=== PATIENT | male | born 1950 | race Caucasian/White ===

== ENCOUNTER → 2016-12-09 | Outpatient (CLI) | payer MEDICARE, BC ==
--- NOTE | 2016-12-09 13:55 | XR ---
EXAMINATION TYPE: XR chest 2V DATE OF EXAM: 12/09/2016 HISTORY: R05 Cough. REFERENCE: Previous study dated 06/27/2014. FINDINGS: There is increased opacity at the right lung base. Lungs otherwise clear. Pleural spaces ap pear clear. The heart is not enlarged. IMPRESSION: I CANNOT EXCLUDE AN EARLY INFILTRATE IN THE LATERAL ASPECT OF THE RIGHT MIDDLE LOBE.
== END | disposition home or self-care (01) ==
LOC: RADXRMAIN 13:10
PROVIDERS: ATTEND Internal Medicine
DX: R05 Cough (principal)
CPT/HCPCS: 71020

== ENCOUNTER → 2017-05-11 | Outpatient (CLI) | payer MEDICARE, BC ==
--- NOTE | 2017-05-11 16:32 | XR ---
EXAMINATION TYPE: XR chest 2V DATE OF EXAM: 05/11/2017 COMPARISON: 12/09/2016 INDICATION: Cough TECHNIQUE: Frontal and lateral views of the chest are obtained. FINDINGS: The heart size is normal. The pulmonary vasculature is normal. There is hyperinflation flattening the diaphragms compatible COPD. Some chronic lung changes are at t he right costophrenic angle. IMPRESSION: 1. COPD.
== END | disposition home or self-care (01) ==
LOC: RADXRMAIN 14:40
PROVIDERS: ATTEND Nurse Practitioner
DX: R05 Cough (principal)
CPT/HCPCS: 71046

== ENCOUNTER → 2018-08-30 | Outpatient (CLI) | payer MEDICARE, BC ==
--- NOTE | 2018-08-30 16:34 | CT ---
EXAMINATION TYPE: CT sinus wo con DATE OF EXAM: 08/30/2018 COMPARISON: 09/24/2015 HISTORY: Chronic sinusitis. Cough, tobacco use CT DLP: 583 mGycm CONTRAST: 0 mL of Isovue 300 The paranasal sinuses are examined in the axial plane at 2 mm thick sections. Reconstructed images i n the coronal plane were obtained. The maxillary sinuses are clear. The ethmoid air cells are clear. The sphenoid sinuses are clear. The frontal sinuses are clear. The septum is evaluated. There is septal deviation to the left. The ostiomeatal units are patent. IMPRESSIONS: 1. Normal paranasal sinuses.
--- NOTE | 2018-08-30 16:46 | CTL ---
EXAMINATION TYPE: CT Low Dose Lung DATE OF EXAM ORDERED: 08/30/2018 HISTORY: Initial. Lung cancer screening CT DLP: [address] CTDI: 1.91 mGy Automated exposure control for dose reduction was used. SCREENING VISIT: Initial COMPARISON: 08/10/2015 TECHNIQUE: Low dose computed tomography scan was performed through the chest at 1 mm thick sections a nd reconstructed images in the coronal plane at [address] DIAGNOSTIC QUALITY: Limited, but interpretable FINDINGS: LUNG NODULES: Present, detailed below: 1 There is a 0.4 cm peripheral based nodule in the posterior left upper lobe. Series 5 image 69. 2. There is a 0.2 cm right middle lobe peripheral nodule. Series 5 image 137. LUNGS: COPD: Severity: Mild Fibrosis: Severity: None Lymph nodes: None Other findings: None RIGHT PLEURAL SPACE: Effusion: None Calcification: None Thickening: None Pneumothorax: None LEFT PLEURAL SPACE: Effusion: None Calcification: None Thickening: Minimal along the lateral left lung base adjacent to the major fissure, example image ser ies 3 image 41 Pneumothorax: None HEART: Heart Size: Normal Coronary calcification: Minimal Pericardial effusion: None OTHER FINDINGS: Upper abdomen: Normal Bony thorax: Normal Supraclavicular region: Normal Other: Ascending thoracic aorta at the level the main pulmonary artery is 3.5 cm. The main pulmonary artery at the bifurcation is 2.2 cm. IMPRESSION: Probably benign findings FOLLOW UP CT CHEST RECOMMENDATION: Follow-up CT chest in [address] LUNG RAD: Lung-Rad 3 Probably Benign
== END | disposition home or self-care (01) ==
LOC: RADCTMAIN 15:44
PROVIDERS: ATTEND Otolaryngology
DX: Z12.2 Encounter for screening for malignant neoplasm of respiratory organs (principal); J32.9 Chronic sinusitis, unspecified; Z87.891 Personal history of nicotine dependence
CPT/HCPCS: 70486; G0297

== ENCOUNTER → 2018-09-07 | Outpatient (CLI) | payer MEDICARE, BC ==
--- NOTE | 2018-09-07 15:34 | US ---
EXAMINATION TYPE: US kidneys/renal and bladder DATE OF EXAM: 09/07/2018 COMPARISON: NONE CLINICAL HISTORY: R31.29 Other microscopic hematuria. No prominent pain, chronic back pain with pain port. EXAM MEASUREMENTS: Right Kidney: 10.2 x 5.4 x 4.6 cm Left Kidney: 9.7 x 5.1 x 4.8 cm Right Kidney: No hydronephrosis or masses seen Left Kidney: No hydronephrosis or masses seen Bladder: wnl, wall irregularity is seen diffusely. Left jet seen There is no evidence for hydronephrosis at this point in time. No nephrolithiasis is seen. No osito s are identified. The urinary bladder is anechoic. IMPRESSION: No hydronephrosis or nephrolithiasis. No focal renal mass is seen. Diffuse wall irregularity of the u rinary bladder could relate to incomplete distention, cystitis or other etiology. CT cystogram could be considered if there is further clinical concern.
== END | disposition home or self-care (01) ==
LOC: RADUSWWP 14:46
PROVIDERS: ATTEND Internal Medicine
DX: N32.9 Bladder disorder, unspecified (principal); R31.29 Other microscopic hematuria
CPT/HCPCS: 76770

== ENCOUNTER → 2018-09-22 | Outpatient (CLI) | payer MEDICARE, BC ==
[2018-09-22 16:58] LABS: African American GFR (CKD) >90 (>60 ml/min/1.73 sqM); Blood Urea Nitrogen 12 mg/dL (9-20)
--- NOTE | 2018-09-22 22:32 | CT ---
EXAMINATION TYPE: CT urogram wo/w con DATE OF EXAM: 09/22/2018 COMPARISON: Renal ultrasound September 07, 2018. HISTORY: hematuria X [address] DLP: 3111 mGycm, Automated Exposure Control for Dose Reduction was Utilized. CONTRAST: CT scan of the abdomen and pelvis is performed without oral and without and with IV Contrast, patient injected with 100 mL of Isovue 300. Urogram protocol with 3-D reconstructed images created on an [employer] workstation and reviewed. FINDINGS: KUB: Noncontrast images show no renal calculi bilaterally. Postcontrast images show symmetric cortica l medullary uptake and excretion from both kidneys without evidence of concerning solid or cystic yared al mass or hydronephrosis seen bilaterally. Urinary bladder shows improved distention on CT without i ntraluminal mass or suspicious wall thickening. Visualized portion of both ureters show no suspicious dilatation or obstructing mass. LUNG BASES: There is patchy bilateral lateral aspects linear scarring. LIVER/GB: No significant abnormality is appreciated. PANCREAS: No significant abnormality is seen. SPLEEN: No significant abnormality is seen. ADRENALS: No significant abnormality is seen. KIDNEYS: No significant abnormality is seen. BOWEL: No significant abnormality is seen. PROSTATE/SEMINAL VESICLES: Prostate gland is upper limits of normal in size. LYMPH NODES: No greater than 1cm abdominal or pelvic lymph nodes are appreciated. OSSEOUS STRUCTURES: Slight dextroconvex scoliotic curvature. Moderate to severe multilevel spurring a nd disc space narrowing throughout the visualized thoracolumbar spine. Large spur effaces the anterio r thecal sac at L1-L2 level with multiple additional posterior spurs effacing the anterior thecal sac throughout the lumbar spine. There is multilevel facet arthropathy. OTHER: Stimulator device in the left upper gluteal tissue is noted ascending in the thoracic spinal c anal. IMPRESSION: No significant finding is seen to account for patient's clinical symptoms of hematuria.
== END | disposition home or self-care (01) ==
LOC: RADCTMAIN 16:09
PROVIDERS: ATTEND Internal Medicine
DX: R31.9 Hematuria, unspecified (principal)
CPT/HCPCS: 82565; 84520; 74178; 36415; 74400; Q9967

== ENCOUNTER → 2020-05-10 | Outpatient (CLI) | payer MEDICARE, BC ==
[~2020-05-10] MED LIST: REGADENOSON 0.4 MG/5 ML SYRINGE IV PRN
--- NOTE | 2020-05-10 09:58 | US ---
EXAMINATION TYPE: US carotid duplex BILAT DATE OF EXAM: 05/10/2020 COMPARISON: NONE CLINICAL HISTORY: 70-year-old male I25.119 Atherosclerotic heart disease of [place]. TECHNIQUE: Carotid duplex ultrasound examination. Indirect Doppler criteria was utilized. FINDINGS: EXAM MEASUREMENTS: RIGHT: Peak Systolic Velocity (PSV) cm/sec ----- Right CCA: 100.5 ----- Right ICA: 134.0 ----- Right ECA: 141.5 ICA/CCA ratio: 1.3 RIGHT: End Diastole cm/sec ----- Right CCA: 27.3 ----- Right ICA: 45.0 ----- Right ECA: 24.2 LEFT: Peak Systolic Velocity (PSV) cm/sec ----- Left CCA: 121.3 ----- Left ICA: 105.8 ----- Left ECA: 89.7 ICA/CCA ratio: 0.9 LEFT: End Diastole cm/sec ----- Left CCA: 35.0 ----- Left ICA: 44.5 ----- Left ECA: 11.1 VERTEBRALS (direction of flow): Right Vertebral: Antegrade Left Vertebral: Antegrade Rhythm: Normal Deck Scaler notes: Minimal atherosclerotic changes with no significant velocity increases. IMPRESSION: 1. Mildly elevated velocities right ICA suspected to be from turbulent flow (rather than a moderate 5 0-69% stenosis) as no appreciable narrowing is demonstrated on grayscale images. 2. No definite hemodynamically significant ICA stenosis on either side. Criteria for Assigning % of Stenosis / Diameter reduction (Estimation based on the indirect measurements of the internal carotid artery velocities (ICA PSV). 1. Normal (no stenosis)=ICA PSV < 125 cm/s: ratio < 2.0: ICA EDV<40 cm/s. 2. Less than 50% stenosis=ICA PSV < 125 cm/s: ratio < 2.0: ICA EDV<40 cm/s. 3. 50 to 69% stenosis=ICA PSV of 125 to 230 cm/s: ration 2.0 ? 4.0: ICA EDV 40-100 cm/s. 4. Greater than 70% stenosis to near occlusion= ICA PSV > 230 cm/s: ratio > 4.0: ICA EDV > 100 cm/s. 5. Near occlusion= ICA PSV velocities may be low or undetectable: variable ratio and ICA EDV. 6. Total occlusion=unable to detect flow.
--- NOTE | 2020-05-10 12:58 | NM ---
EXAMINATION TYPE: NM stress lexiscan cardiolite DATE OF EXAM: 05/10/2020 COMPARISON: NONE HISTORY: 70-year-old male I25.119 TECHNIQUE: After the intravenous administration of 10.2 mCi Tc 99m Sestamibi - Cardiolite resting SP ECT images acquired 50 minutes post injection. The patient received 0.4mg Lexiscan, 25.7 mCi Tc 99m Sestamibi - Stress images obtained [address] injection FINDINGS: Review of stress and rest SPECT images demonstrates fixed perfusion abnormality along the inferior, i nferolateral and apical wall and inferior, inferoseptal mid to basal wall. No discrete reversibility is identified. However, TID is elevated at 1.27. No distinct perfusion abnormality. Gated analysis s uggests some possible hypokinesis of the inferior wall. Estimated left ventricular ejection fraction of 66 %. IMPRESSION: Unable to exclude previous inferior wall infarct versus extensive diaphragmatic attenuation. In addit ion, TID is increased at 1.27. This can be seen in the setting of multivessel global inducible ischem ia. Further clinical correlation/workup recommended.
--- NOTE | 2020-05-10 13:00 | ECHOF ---
Referral Reason:I25.119 Atherosclerotic heart disease of [place]... MEASUREMENTS -------- HEIGHT: 180.3 cm WEIGHT: 104.3 kg BP: RVIDd: 2.8 cm (< 3.3) IVSd: 1.0 cm (0.6 - 1.1) LVIDd: 4.6 cm (3.9 - 5.3) LVPWd: 1.2 cm (0.6 - 1.1) IVSs: 1.9 cm LVIDs: 1.8 cm LVPWs: 2.1 cm LAESV Index (A-L): 26.60 ml/m Ao Diam: 3.0 cm (2.0 - 3.7) AV Cusp: 2.4 cm (1.5 - 2.6) LA Diam: 3.2 cm (2.7 - 3.8) MV EXCURSION: 14.013 mm (> 18.000) MV EF SLOPE: 135 mm/s (70 - 150) EPSS: 0.8 cm MV E Robert: 0.65 m/s MV DecT: 235 ms MV A Robert: 0.93 m/s MV E/A Ratio: 0.69 RAP: 5.00 mmHg RVSP: 23.28 mmHg FINDINGS -------- Sinus rhythm. This was a technically adequate study. The left ventricular size is normal. Left ventricular wall thickness is normal. Overall left vent ricular systolic function is normal with, an EF between 55 - 60 %. The diastolic filling pattern is normal for the age of the patient 7.91. The right ventricle is normal in size. Normal LA size by volume 22+/-6 ml/m2. The right atrial size is normal. Interatrial and interventricular septum intact. The aortic valve is trileaflet, and appears structurally normal. No aortic stenosis or regurgitation. The mitral valve is normal. Mild mitral regurgitation is present. The tricuspid valve appears structurally normal. Mild tricuspid regurgitation present. Right vent ricular systolic pressure is normal at < 35 mmHg. There is no pulmonic regurgitation present. The aortic root size is normal. Normal inferior vena cava with normal inspiratory collapse consistent with estimated right atrial pre ssure of 5 mmHg. There is no pericardial effusion. CONCLUSIONS -------- 1. Left ventricular wall thickness is normal. 2. Overall left ventricular systolic function is normal with, an EF between 55 - 60 %. 3. Normal LA size by volume 22+/-6 ml/m2. 4. The aortic valve is trileaflet, and appears structurally normal. No aortic stenosis or regurgitati on. 5. Mild mitral regurgitation is present. 6. Mild tricuspid regurgitation present. 7. There is no pericardial effusion. STONE LAYER: Valarie Menchaca RDCS
--- NOTE | 2020-05-10 14:18 | EST ---
EXERCISE STRESS AGE: 70 SEX: Male HT: 5'11" WT: 235 lbs. PROTOCOL: Lexiscan Cardiolite STAGE: N/A DURATION OF EXERCISE: N/A HEART RATE REST: 66 BLOOD PRESSURE REST: 126/70 MAXIMUM HEART RATE ACHIEVED: 80 MAXIMUM BLOOD PRESSURE: 126/70 85% MPHR: 128 100% MPHR: 151 METS: N/A INDICATIONS: Atherosclerotic heart disease CLINICAL INFORMATION: Baseline rhythm is sinus mechanism, rate 66, normal axis and intervals, normal electrocardiogram. Baseline blood pressure 126/70 mmHg. Patient received injection of Lexiscan. Electrocardiograph monitoring revealed no evidence of diagnostic ischemic ST deviation. Cardiolite was injected per protocol. CONCLUSION: 1. Nondiagnostic electrocardiograph stress testing. 2. Nuclear images will be reported separately. MMODL / IJN: [id number] /
== END | disposition home or self-care (01) ==
LOC: RADUSWWP 07:07
PROVIDERS: ATTEND Internal Medicine
DX: I08.1 Rheumatic disorders of both mitral and tricuspid valves (principal); I65.23 Occlusion and stenosis of bilateral carotid arteries; I25.119 Atherosclerotic heart disease of native coronary artery with unspecified angina pectoris; I73.9 Peripheral vascular disease, unspecified; R60.0 Localized edema
CPT/HCPCS: 93017; 93306; 93922; 93880; 78452; A9500; J2785

== ENCOUNTER → 2020-06-06 | Outpatient (CLI) | payer MEDICARE, BC ==
--- NOTE | 2020-06-06 13:52 | CT ---
EXAMINATION TYPE: CT angio neck DATE OF EXAM: 06/06/2020 HISTORY: Carotid stenosis COMPARISON: Ultrasound 05/10/2020 CT DLP: 398.21 mGycm. Automated Exposure Control for Dose Reduction was Utilized. TECHNIQUE: CTA scan of the neck is performed , patient injected with 65 mL of Isovue 370, axial imag es are obtained, coronal and sagittal reformatted images are reviewed. Three-D reconstructed images a re created on an independent workstation and reviewed. FINDINGS: Hypertrophic and degenerative changes spine with multilevel foraminal encroachment and bert l stenosis. Carotid bifurcations are widely patent bilaterally with no significant stenosis. Mild atherosclerotic change of the aortic arch. Standard three-vessel arch anatomy. Visualized subclavian arteries patent . Vertebral artery symmetric. Intracranial and soft tissue structures of the neck are symmetric. Lung paraseptal emphysema noted at the lung apices. Chronic rib deformity seen posteriorly in the upper rib cage on the right suggestiv e of remote trauma. 2 mm nodule right upper lobe anterior segment.. Measures 4 mm. Thyroid homogeneou s. IMPRESSION: 1. Carotid bifurcations are widely patent with no significant hemodynamic stenosis. 2. 2 mm anterior segment right upper lobe pulmonary nodule too small to characterize. 12 month follow -up CT scan could be obtained to confirm stability.
== END | disposition home or self-care (01) ==
LOC: RADCTMAIN 11:29
PROVIDERS: ATTEND Internal Medicine
DX: I65.29 Occlusion and stenosis of unspecified carotid artery (principal)
CPT/HCPCS: 82565; 84520; 70498; 36415; Q9967

== ENCOUNTER → 2020-06-21 | Outpatient (CLI) | payer MEDICARE, BC ==
[2020-06-22 04:01] LABS: African American GFR (CKD) 88.6 (60.0-200.0); Non-African American GFR(CKD) 76.5 (60.0-200.0)
== END | disposition home or self-care (01) ==
LOC: LABWHC1 12:45
PROVIDERS: ATTEND Internal Medicine Cardiovascular Disease
DX: Z01.812 Encounter for preprocedural laboratory examination (principal)
CPT/HCPCS: 36415; 82565; 84520

== ENCOUNTER → 2020-07-11 | Outpatient (CLI) | payer MEDICARE, BC ==
--- NOTE | 2020-07-12 07:38 | CTL ---
EXAMINATION TYPE: CT Low Dose Lung DATE OF EXAM ORDERED: 07/11/2020 HISTORY: Personal history tobacco use. Lung cancer screening CT DLP: [address] CTDI: 2.68 mGy Automated exposure control for dose reduction was used. SCREENING VISIT: Subsequent follow-up COMPARISON: 08/30/2018 TECHNIQUE: Low dose computed tomography scan was performed through the chest at 1 mm thick sections a nd reconstructed images in the coronal plane at [address] DIAGNOSTIC QUALITY: Satisfactory FINDINGS: LUNG NODULES: None. LUNGS: COPD: Severity: None Fibrosis: Severity: None Lymph nodes: No enlarged lymphadenopathy Other findings: None RIGHT PLEURAL SPACE: Effusion: None Calcification: None Thickening: None Pneumothorax: None LEFT PLEURAL SPACE: Effusion: None Calcification: None Thickening: There is a small area of pleural thickening along the lateral left lower lung field, exam ple image series 5 image 211. Pneumothorax: None HEART: Heart Size: Normal Coronary calcification: Mild Pericardial effusion: None OTHER FINDINGS: Upper abdomen: Normal Bony thorax: Normal Supraclavicular region: Normal Other: Ascending thoracic aorta at the main pulmonary artery is 3.6 cm. Main pulmonary artery the bif urcation is 2.6 cm. IMPRESSION: No suspicious changes to suggest neoplasm CT LUNG RAD AND CT CHEST RECOMMENDATION: Lung-Rad 2 Benign Appearance or Behavior: Continue annual sc reening with LDCT in 12 months. S Modifier (other clinically significant findings): None
== END | disposition home or self-care (01) ==
LOC: RADCTMAIN 16:51
PROVIDERS: ATTEND Internal Medicine Pulmonary Disease
DX: Z12.2 Encounter for screening for malignant neoplasm of respiratory organs (principal); Z87.891 Personal history of nicotine dependence
CPT/HCPCS: 71271

== ENCOUNTER 2020-10-28 20:37 | Emergency (ER) | payer MEDICARE, BC ==
[2020-10-28 20:54] VITALS: TEMP 98.3
[2020-10-28] MEDS ORDERED: IBUPROFEN 600 MG TAB PO STA (21:30)
[2020-10-28 22:08] LABS: Basophils % (A) 1 %; Eosinophils # (A) 0.1 k/uL (0-0.7); Eosinophils % (A) 1 %; HCT 37.1 % (39.0-53.0); HGB 12.7 gm/dL (13.0-17.5); Lymphocytes # (A) 1.3 k/uL (1.0-4.8); Lymphocytes % (A) 13 %; MCH 29.5 pg (25.0-35.0); MCHC 34.3 g/dL (31.0-37.0); MCV 85.9 fL (80.0-100.0); Mean Platelet Volume 7.7; Monocytes # (A) 0.6 k/uL (0-1.0); Monocytes % (A) 6 %; Neutrophils # (A) 7.3 k/uL (1.3-7.7); Neutrophils % (A) 78 %; Platelet Count 192 k/uL (150-450); RBC 4.32 m/uL (4.30-5.90); RDW 13.2 % (11.5-15.5); WBC 9.3 k/uL (3.8-10.6)
[2020-10-28] MEDS: SODIUM CHLORIDE 0.9% 500 ML 500 ML IV SCH (22:10)
--- NOTE | 2020-10-28 22:15 | XR ---
EXAMINATION TYPE: XR chest 2V DATE OF EXAM: 10/28/2020 COMPARISON: 05/11/2017 HISTORY: Cough TECHNIQUE: 2 views FINDINGS: There is no heart failure nor confluent pneumonic infiltrate. Costophrenic angles are clear . Thoracic aorta shows atheromatous changes. There is no pleural effusion. There is some spurring in the thoracic spine. IMPRESSION: No active cardiopulmonary disease. Normal heart. No change.
[2020-10-28 22:19] LABS: Partial Thromboplastin Time 25.1 sec (22.0-30.0); Prothrombin Time 10.3 sec (9.0-12.0)
[2020-10-28 22:38] LABS: ALT 14 U/L (4-49); AST 22 U/L (17-59); African American GFR (CKD) >90 (>60 ml/min/1.73 sqM); Alkaline Phosphatase 150 U/L (38-126); Anion Gap 9 mmol/L; Blood Urea Nitrogen 13 mg/dL (9-20); Calcium 9.1 mg/dL (8.4-10.2); Carbon Dioxide 23 mmol/L (22-30); Chloride 105 mmol/L (98-107); Glucose 107 mg/dL (74-99); Non-African American GFR(CKD) 87 (>60 ml/min/1.73 sqM); Potassium 4.1 mmol/L (3.5-5.1); Sodium 137 mmol/L (137-145); Total Bilirubin 0.6 mg/dL (0.2-1.3)
[2020-10-28 22:42] LABS: Appearance,Urine Clear (Clear); Bilirubin,Urine Negative (Negative); Blood,Urine Negative (Negative); Color,Urine Light Yellow; Glucose,Urine (UA) Negative (Negative); Ketones,Urine Negative (Negative); Leukocyte Esterase,Urine Negative (Negative); Nitrite,Urine Negative (Negative); Protein,Urine Negative (Negative); Specific Gravity,Urine 1.006 (1.001-1.035); Urobilinogen,Urine <2.0 mg/dL (<2.0)
--- NOTE | 2020-10-28 23:32 | ED ---
General Adult HPI - General Chief complaint: Upper Respiratory Infection Stated complaint: fever,muscle aches Time Seen by Provider: 10/28/20 21:01 Source: patient Mode of arrival: ambulatory Limitations: no limitations - History of Present Illness Initial comments: 70-year-old male patient presents to the emergency department today for evaluation of fever. Patient states he has been taking Augmentin for sinus infection since last Thursday. Patient states that he has frequent sinus infections and has a standing order for antibiotics from his primary care physician. Patient states last week he started experiencing a bad smell which usually indicates is getting an infection. Patient denies any nasal congestion or drainage. States he has had a cough for the last few days. Denies any sputum production. Denies any chest pain or shortness of breath. Denies headache, blurred vision, double vision. Denies nausea or vomiting. States he has had diarrhea for the last 2 days after starting the antibiotic. We also reports body aches and muscle aches. Patient denies any recent rash, abdominal pain, constipation, back pain, numbness, tingling, dizziness, weakness, hematuria, dysuria, urinary urgency, urinary frequency, headache, visual leana nges, or any other complaints. - Related Data Home Medications Medication Instructions Recorded Confirmed Aspirin [Adult Low Dose Aspirin EC] 81 mg PO DAILY 10/22/16 11/20/16 HYDROmorphone [Dilaudid] 1 mg PO Q4HR PRN 10/22/16 11/20/16 Lisinopril-Hctz 10-12.5 mg 0.9 tab PO DAILY 10/22/16 11/20/16 [Zestoretic 10-12.5] Meloxicam 15 mg PO DAILY 10/22/16 11/20/16 PARoxetine HCL [Paxil] 40 mg PO DAILY 10/22/16 11/20/16 HYDROcodone/APAP 7.5-325MG [[place] 1 tab PO Q6HR PRN 10/24/16 11/20/16 7.5-325] Allergies Allergy/AdvReac Type Severity Reaction Status Date / Time No Known Allergies Allergy Verified 10/28/20 20:54 Review of Systems ROS Statement: Those systems with pertinent positive or pertinent negative responses have been documented in the HPI. ROS Other: All systems not noted in ROS Statement are negative. Past Medical History Additional Past Medical History / Comment(s): pain pump in back History of Any Multi-Drug Resistant Organisms: None Reported Additional Past Surgical History / Comment(s): prerna carpal tunnel surg, pain pump implant, rinoplasty surgery Past Anesthesia/Blood Transfusion Reactions: No Reported Reaction Past Psychological History: No Psychological Hx Reported Smoking Status: Current every day smoker Past Alcohol Use History: None Reported Past Drug Use History: None Reported General Exam Limitations: no limitations General appearance: alert, in no apparent distress, other (This is a well- developed, well-nourished adult male patient in no acute distress. Vital signs upon presentation are temperature 98.3F, pulse 70, respirations 18, blood pressure 132/68, pulse ox 99% on room air.) Eye exam: Present: normal appearance, PERRL, EOMI. Absent: scleral icterus, conjunctival injection, periorbital swelling ENT exam: Present: normal exam, normal oropharynx, mucous membranes moist, TM's normal bilaterally, other (No frontal or maxillary sinus tenderness) Neck exam: Present: normal inspection, full ROM. Absent: tenderness, meningismus, lymphadenopathy Respiratory exam: Present: normal lung sounds bilaterally. Absent: respiratory distress, wheezes, rales, rhonchi, stridor Cardiovascular Exam: Present: regular rate, normal rhythm, normal heart sounds. Absent: systolic murmur, diastolic murmur, rubs, gallop, clicks GI/Abdominal exam: Present: soft, normal bowel sounds. Absent: distended, tenderness, guarding, rebound, rigid Neurological exam: Present: alert, oriented X3, CN II-XII intact Psychiatric exam: Present: normal affect, normal mood Skin exam: Present: warm, dry, intact, normal color. Absent: rash Course Vital Signs 10/28/20 10/28/20 10/28/20 20:51 21:54 22:26 Temperature 98.3 F Pulse Rate 70 Respiratory 18 18 28 H Rate Blood Pressure 132/68 162/87 O2 Sat by Pulse 99 97 Oximetry 10/28/20 23:48 Temperature Pulse Rate 87 Respiratory 16 Rate Blood Pressure 151/98 O2 Sat by Pulse 97 Oximetry EKG Findings - EKG Comments: EKG Findings:: EKG obtained at 2157 shows sinus bradycardia with a ventricular rate of 59, NJ interval 204, QRS duration 96, QTc 456, QTc 451. No evidence of ST elevation or depression. Medical Decision Making - Medical Decision Making 70-year-old male patient presents to the emergency department today for evaluation of fever. Taking Augmentin for sinus infection. Physical examination is unremarkable. Lungs are clear to auscultation with good air movement. No sinus tenderness. Labs reviewed and revealed normal white blood cell count, negative lactic acid. Vital signs are normal. Chest x-ray negative. I did discuss findings and results with the patient and his . The be discharged to continue the Augmentin. Instructed to follow-up with the primary care physician for recheck in 1-2 days. Return parameters were discussed in detail. Patient verbalizes understanding and agrees with this plan. Case discussed with my attending Dr. Aly. - Lab Data Result diagrams: 10/28/20 21:51 10/28/20 21:51 Lab Results 10/28/20 10/28/20 10/28/20 Range/Units 21:51 21:51 21:51 WBC 9.3 (3.8-10.6) k/uL RBC 4.32 (4.30-5.90) m/uL Hgb 12.7 L (13.0-17.5) gm/dL Hct 37.1 L (39.0-53.0) % MCV 85.9 (80.0-100.0) fL MCH 29.5 (25.0-35.0) pg MCHC 34.3 (31.0-37.0) g/dL RDW 13.2 (11.5-15.5) % Plt Count 192 (150-450) k/uL MPV 7.7 Neutrophils % 78 % Lymphocytes % 13 % Monocytes % 6 % Eosinophils % 1 % Basophils % 1 % Neutrophils # 7.3 (1.3-7.7) k/uL Lymphocytes # 1.3 (1.0-4.8) k/uL Monocytes # 0.6 (0-1.0) k/uL Eosinophils # 0.1 (0-0.7) k/uL Basophils # 0.0 (0-0.2) k/uL PT 10.3 (9.0-12.0) sec INR 1.0 (<1.2) APTT 25.1 (22.0-30.0) sec Sodium (137-145) mmol/L Potassium (3.5-5.1) mmol/L Chloride (98-107) mmol/L Carbon Dioxide (22-30) mmol/L Anion Gap mmol/L BUN (9-20) mg/dL Creatinine (0.66-1.25) mg/dL Est GFR (CKD-EPI)AfAm (>60 ml/min/1.73 sqM) Est GFR (CKD-EPI)NonAf (>60 ml/min/1.73 sqM) Glucose (74-99) mg/dL Plasma Lactic Acid Dereck (0.7-2.0) mmol/L Calcium (8.4-10.2) mg/dL Total Bilirubin (0.2-1.3) mg/dL AST (17-59) U/L ALT (4-49) U/L Alkaline Phosphatase (38-126) U/L Total Protein (6.3-8.2) g/dL Albumin (3.5-5.0) g/dL Urine Color Light Yellow Urine Appearance Clear (Clear) Urine pH 7.0 (5.0-8.0) Ur Specific [place] 1.006 (1.001-1.035) Urine Protein Negative (Negative) Urine Glucose (UA) Negative (Negative) Urine Ketones Negative (Negative) Urine Blood Negative (Negative) Urine Nitrite Negative (Negative) Urine Bilirubin Negative (Negative) Urine Urobilinogen <2.0 (<2.0) mg/dL Ur Leukocyte Esterase Negative (Negative) 10/28/20 10/28/20 Range/Units 21:51 21:51 WBC (3.8-10.6) k/uL RBC (4.30-5.90) m/uL Hgb (13.0-17.5) gm/dL Hct (39.0-53.0) % MCV (80.0-100.0) fL MCH (25.0-35.0) pg MCHC (31.0-37.0) g/dL RDW (11.5-15.5) % Plt Count (150-450) k/uL MPV Neutrophils % % Lymphocytes % % Monocytes % % Eosinophils % % Basophils % % Neutrophils # (1.3-7.7) k/uL Lymphocytes # (1.0-4.8) k/uL Monocytes # (0-1.0) k/uL Eosinophils # (0-0.7) k/uL Basophils # (0-0.2) k/uL PT (9.0-12.0) sec INR (<1.2) APTT (22.0-30.0) sec Sodium 137 (137-145) mmol/L Potassium 4.1 (3.5-5.1) mmol/L Chloride 105 (98-107) mmol/L Carbon Dioxide 23 (22-30) mmol/L Anion Gap 9 mmol/L BUN 13 (9-20) mg/dL Creatinine 0.90 (0.66-1.25) mg/dL Est GFR (CKD-EPI)AfAm >90 (>60 ml/min/1.73 sqM) Est GFR (CKD-EPI)NonAf 87 (>60 ml/min/1.73 sqM) Glucose 107 H (74-99) mg/dL Plasma Lactic Acid Dereck 0.9 (0.7-2.0) mmol/L Calcium 9.1 (8.4-10.2) mg/dL Total Bilirubin 0.6 (0.2-1.3) mg/dL AST 22 (17-59) U/L ALT 14 (4-49) U/L Alkaline Phosphatase 150 H (38-126) U/L Total Protein 7.0 (6.3-8.2) g/dL Albumin 4.0 (3.5-5.0) g/dL Urine Color Urine Appearance (Clear) Urine pH (5.0-8.0) Ur Specific [place] (1.001-1.035) Urine Protein (Negative) Urine Glucose (UA) (Negative) Urine Ketones (Negative) Urine Blood (Negative) Urine Nitrite (Negative) Urine Bilirubin (Negative) Urine Urobilinogen (<2.0) mg/dL Ur Leukocyte Esterase (Negative) - Radiology Data Radiology results: report reviewed, image reviewed Two-view x-ray of the chest is obtained. Report was reviewed in its entirety. Impression by Dr. Chambers shows no active cardiopulmonary disease. Normal heart. No change. Disposition Clinical Impression: Body aches, Fever Disposition: HOME SELF-CARE Condition: Good Instructions (If sedation given, give patient instructions): Fever in Adults (ED) Additional Instructions: Follow-up with your primary care physician for recheck in 1-2 days. Continue your home antibiotic. Return to the emergency department for any new, worsening, or concerning symptoms. Is patient prescribed a controlled substance at d/c from ED?: No Referrals: Vasiliy Larry MD [Primary Care Provider] - 1-2 days Time of Disposition: 23:32
[2020-10-28 23:49] VITALS: BP 151/98; PULSE 87; RESP 16
== END 2020-10-28 23:49 | disposition home or self-care (01) ==
LOC: EC 20:37
DX: R50.9 Fever, unspecified (principal); M79.10 Myalgia, unspecified site; F17.200 Nicotine dependence, unspecified, uncomplicated; Z79.82 Long term (current) use of aspirin
CPT/HCPCS: 36415; 71046; 80053; 81003; 83605; 85025; 85610; 85730; 87040; 93005; 99283

== ENCOUNTER → 2022-03-11 | Outpatient (CLI) | payer MEDICARE, BC ==
--- NOTE | 2022-03-11 10:16 | CT ---
EXAMINATION TYPE: CT sinus wo con DATE OF EXAM: 03/11/2022 COMPARISON: Sinus CT 2019 HISTORY: Chronic sinusitis. CT DLP: 679.3 mGycm. Automated Exposure Control for Dose Reduction was Utilized. TECHNIQUE: CT scan of the sinuses is performed without contrast, axial images are obtained, coronal r eformatted images are also reviewed. FINDINGS: The paranasal sinuses including the frontal, ethmoid, sphenoid, and maxillary sinuses bila terally are well-aerated without abnormal opacification or suspicious air-fluid levels. The ostiomea joshua complex remain patent bilaterally on the coronal images. Visualized portion of mastoid air cells show no abnormal opacification. The globes are intact bilate rally. Visualized brain parenchyma shows age related changes. IMPRESSION: The paranasal sinuses remain clear and the ostiomeatal complex remains patent bilaterally . No significant change from prior.
--- NOTE | 2022-03-11 17:15 | XR ---
EXAMINATION TYPE: XR chest special 4+ views DATE RECEIVED ON: 03/11/2022 DATE PERFORMED: 03/11/2022 COMPARISON: NONE HISTORY: Cough fever sinus infection TECHNIQUE: Frontal and lateral views of the chest are obtained. Additional bilateral oblique views w ere obtained. FINDINGS: The heart size is normal. The pulmonary vasculature is normal. The lungs are clear. No s uspicious infiltrates are evident. No pneumothorax is present. Osseous structures appear intact. Spon dylosis in the thoracic spine. IMPRESSION: 1. No acute cardiopulmonary process.
== END | disposition home or self-care (01) ==
LOC: RADCTMAIN 09:47
PROVIDERS: ATTEND Otolaryngology
DX: J32.9 Chronic sinusitis, unspecified (principal); J32.8 Other chronic sinusitis; R05.9 Cough, unspecified
CPT/HCPCS: 70486; 71048

== ENCOUNTER → 2022-07-14 | Outpatient (CLI) | payer MEDICARE, BC ==
--- NOTE | 2022-07-16 10:09 | CA ---
Transthoracic Echo Report Name: Dima Scales Age: 72 Gender: M : 1950 Exam Date: 07/14/2022 13:29 Exam Location: [place] Ht (in): 69 Wt (lb): 223 Ordering Physician: Vasiliy Larry MD Attending/Referring Phys: Family Service Worker Jacquie Tai RDCS Procedure CPT: Indications: I34.0 nonrheumatic mitral valve regurgitation Cardiac Hx: Technical Quality: Fair Contrast 1: Total Dose (mL): Contrast 2: Total Dose (mL): MEASUREMENTS (Male / Female) Normal Values 2D ECHO LV Diastolic Diameter PLAX 4.6 cm 4.2 - 5.9 / 3.9 - 5.3 cm LV Systolic Diameter PLAX 3.0 cm IVS Diastolic Thickness 1.1 cm 0.6 - 1.0 / 0.6 - 0.9 cm LVPW Diastolic Thickness 1.2 cm 0.6 - 1.0 / 0.6 - 0.9 cm LV Relative Wall Thickness 0.5 RV Internal Dim ED PLAX 4.4 cm LA Volume 63.5 cm??? 18 - 58 / 22 - 52 cm??? M-MODE Aortic Root Diameter MM 2.7 cm LA Systolic Diameter MM 4.7 cm LA Ao Ratio MM 1.7 AV Cusp Separation MM 2.0 cm DOPPLER AV Peak Velocity 148.5 cm/s AV Peak Gradient 8.8 mmHg AV Mean Velocity 97.3 cm/s AV Mean Gradient 4.3 mmHg AV Velocity Time Integral 33.3 cm LVOT Peak Velocity 116.0 cm/s LVOT Peak Gradient 5.4 mmHg LVOT Velocity Time Integral 26.2 cm MV Area PHT 3.2 cm??? Mitral E Point Velocity 90.5 cm/s Mitral A Point Velocity 103.0 cm/s Mitral E to A Ratio 0.9 MV Deceleration Time 237.5 ms MV E' Velocity 9.5 cm/s Mitral E to MV E' Ratio 9.6 TR Peak Velocity 253.5 cm/s TR Peak Gradient 25.7 mmHg Right Atrial Pressure 15.0 mmHg Pulmonary Artery Systolic Pressu 40.7 mmHg Right Ventricular Systolic Press 40.7 mmHg FINDINGS Left Ventricle Left ventricular cavity size normal. Mildly increased left ventricular wall thickness. Normal left ventricular systolic function with no obvious regional wall motion abnormalities. Left ventricular ejection fraction is estimated at 55-60 %. Right Ventricle Moderate right ventricular dilatation. Mild pulmonary hypertension. Right ventricular systolic pressure estimated at 40 mm hg. Right Atrium Normal right atrial size. Left Atrium Mildly increased left atrial volume. Mildly increased left atrial area. Mitral Valve Structurally normal mitral valve. Mild mitral regurgitation. Aortic Valve No aortic valve stenosis or regurgitation. Tricuspid Valve Mild tricuspid regurgitation. Pulmonic Valve Trace pulmonic regurgitation. Pericardium No pericardial effusion. Aorta Normal size aortic root and proximal ascending aorta. CONCLUSIONS Normal LV size and systolic function. Mild mitral and tricuspid regurgitation. Mildly elevated PA pressures. No pericardial effusion Previewed by: Dr. Venice Martin MD (Electronically Signed) Final Date: 16 July 2022 10:08
== END | disposition home or self-care (01) ==
LOC: RADECHMAIN 13:12
PROVIDERS: ATTEND Internal Medicine
DX: I08.1 Rheumatic disorders of both mitral and tricuspid valves (principal); I25.10 Atherosclerotic heart disease of native coronary artery without angina pectoris
CPT/HCPCS: 93306

== ENCOUNTER → 2022-07-15 | Outpatient (CLI) | payer MEDICARE, BC ==
--- NOTE | 2022-07-15 11:13 | NM ---
EXAMINATION TYPE: NM stress lexiscan cardiolite DATE OF EXAM: 07/15/2022 COMPARISON: NONE HISTORY: I34.0; R91.1; I25.10; i65.23 TECHNIQUE: After the intravenous administration of 9.64 mCi Tc 99m Sestamibi - Cardiolite resting SP ECT images acquired 45 minutes post injection. The patient received 0.4mg Lexiscan, 25.5 mCi Tc 99m Sestamibi - Stress images obtained [address] injection FINDINGS: Review of stress and rest SPECT images decreased perfusion inferior wall. Stress-induced ischemia is not excluded. There is also decrease stress-induced decreased perfusion involving the cardiac apex. G ated analysis shows normal wall motion with an estimated left ventricular ejection fraction of 71 %. IMPRESSION: I cannot exclude stress-induced ischemia involving the inferior wall and cardiac apex. Correlate clin ically.
--- NOTE | 2022-07-15 11:31 | US ---
EXAMINATION TYPE: US carotid duplex BILAT DATE OF EXAM: 07/15/2022 COMPARISON: NONE CLINICAL HISTORY: I65.23 CAROTID STENOSIS. TECHNIQUE: Carotid duplex ultrasound examination. Indirect Doppler criteria was utilized. 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 IMPRESSION: No evidence for hemodynamically significant stenosis Criteria for Assigning % of Stenosis / Diameter reduction (Estimation based on the indirect measurements of the internal carotid artery velocities (ICA PSV). 1. Normal (no stenosis)=ICA PSV < 125 cm/s: ratio < 2.0: ICA EDV<40 cm/s. 2. Less than 50% stenosis=ICA PSV < 125 cm/s: ratio < 2.0: ICA EDV<40 cm/s. 3. 50 to 69% stenosis=ICA PSV of 125 to 230 cm/s: ration 2.0 ? 4.0: ICA EDV 40-100 cm/s. 4. Greater than 70% stenosis to near occlusion= ICA PSV > 230 cm/s: ratio > 4.0: ICA EDV > 100 cm/s. 5. Near occlusion= ICA PSV velocities may be low or undetectable: variable ratio and ICA EDV. 6. Total occlusion=unable to detect flow.
--- NOTE | 2022-07-16 10:02 | CA ---
Lexiscan Nuclear Stress Test Report Name: Dima Scales Exam Date: 07/15/2022 09:56 Exam Location: [place] Ht (in): 71 Wt (lb): 223 BSA: 2.21 Ordering Phys: Vasiliy Larry MD Referring Phys: Laron, Technologist: Linus Obrien Age: 72 Gender: M : 1950 Procedure CPT: Indications: I34.0; R91.1; I25.10; i65.23 ICD-10 Codes: Patient History: HTN, CURRENT SMOKER 1 PPD X 35 YEARS Medications: MELOXICAM, LISINOPRIL, ATORVASTATIN, TAMSULOSIN, FEXOFENADINE, SERTRALINE, MONTELUKAST, FLUTICASONE Meds past 24 hrs: Pretest Chest Pain: STRESS TEST Lexiscan Protocol Exercise Duration (min:sec): 01:[address] Depressions (mm): Angina Score: Rodney Score: Resting HR (bpm): 60 Peak HR (bpm): 80 Resting BP (mmHg): 135 / 71 Peak BP (mmHg): 135 / 71 MPHR: 149 Target HR: 127 % MPHR: 54 METS: 1.0 Total Dose: Peak Dose: Atropine: Double Product: 37496 BP Response: Stress Termination: INFUSION COMPLETE Stress Symptoms: NO SYMPTOMS Stress Summary: ECG ANALYSIS Resting ECG: Stress ECG: CONCLUSIONS Baseline EKG revealed a normal sinus rhythm with minor nonspecific ST abnormality. With Lexiscan administration the heart rate went up from 60-78 bpm and the blood pressure changed from 135/71-124/66. Patient did not have any significant symptoms and EKG remained inconclusive because of minor resting EKG changes. The nuclear scan results which are more pertinent will be reported by the radiologist Dr. Venice Martin MD (Electronically Signed) Final Date: 16 July 2022 10:01
== END | disposition home or self-care (01) ==
LOC: RADNMMAIN 08:21
PROVIDERS: ATTEND Internal Medicine
DX: I34.0 Nonrheumatic mitral (valve) insufficiency (principal); I25.10 Atherosclerotic heart disease of native coronary artery without angina pectoris; I65.23 Occlusion and stenosis of bilateral carotid arteries
CPT/HCPCS: 93017; 93880; 78452; A9500; J2785

== ENCOUNTER → 2022-07-17 | Outpatient (CLI) | payer MEDICARE, BC ==
--- NOTE | 2022-07-17 08:24 | CTL ---
EXAMINATION TYPE: CT Low Dose Lung DATE OF EXAM ORDERED: 07/17/2022 COMPARISON: HISTORY: . Low Dose CT Lung Screening CT DLP: 105.[address] CTDI: 2.6 mGy IV CONTRAST USED: None. SCREENING VISIT: First visit COMPARISON: None. TECHNIQUE: Low dose computed tomography scan was performed through the chest at 1 millimeter thick se ctions and reconstructed images in the coronal plane at [address] DIAGNOSTIC QUALITY: Satisfactory FINDINGS: LUNG NODULES: Stable right upper lobe calcified granuloma. No additional nodules seen greater than 5 mm. LUNGS: COPD: Severity: Moderate Fibrosis: Severity: Mild Lymph nodes: None Other findings: None RIGHT PLEURAL SPACE: Effusion: None Calcification: None Thickening: None Pneumothorax: None LEFT PLEURAL SPACE: Effusion: None Calcification: None Thickening: None Pneumothorax: None HEART: Heart Size: Mildly enlarged Coronary calcification: Mild Pericardial effusion: None OTHER FINDINGS: Upper abdomen: No significant abnormality Bony thorax: Degenerative changes Supraclavicular region: No significant abnormalityOther: No significant abnormalityI IMPRESSION: Benign FOLLOW UP CT CHEST RECOMMENDATION: Follow-up screening in one year CT LUNG RAD: LUNG RAD CATEGORY 2 benign appearance and/or behavior.
== END | disposition home or self-care (01) ==
LOC: RADCTMAIN 06:16
PROVIDERS: ATTEND Internal Medicine
DX: Z12.2 Encounter for screening for malignant neoplasm of respiratory organs (principal); F17.210 Nicotine dependence, cigarettes, uncomplicated
CPT/HCPCS: 71271

== ENCOUNTER → 2023-02-24 | Outpatient (CLI) | payer MEDICARE, BC ==
--- NOTE | 2023-02-24 09:50 | XR ---
EXAMINATION TYPE: XR Hip Bilateral Complete DATE OF EXAM: 02/24/2023 9:45 AM INDICATION: Patient age:Male; 72 years old; Reason for study: M25.551 LEFT HIP PAIN M25.552 RIGHT HIP PAIN; [facility]. COMPARISON: None. TECHNIQUE: Both hips were examined in the frontal and lateral projections. FINDINGS: No acute fracture or dislocation. There is medial joint space narrowing with acetabular scl erosis and marginal osteophytosis of both hips. No subcutaneous soft tissue swelling. IMPRESSION: 1. No acute osseous pathology. 2. 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
== END | disposition home or self-care (01) ==
LOC: RADXRMAIN 09:31
PROVIDERS: ATTEND Internal Medicine
DX: M16.0 Bilateral primary osteoarthritis of hip (principal)
CPT/HCPCS: 73521

== ENCOUNTER → 2023-07-30 | Outpatient (CLI) | payer MEDICARE, BC ==
--- NOTE | 2023-07-30 10:03 | CTL ---
EXAMINATION TYPE: CT Low Dose Lung DATE OF EXAM ORDERED: 07/30/2023 HISTORY: Lung cancer screening CT DLP: 128.[address] CTDI: 3.50 mGy Automated exposure control for dose reduction was used. COMPARISON: 07/17/2022 TECHNIQUE: Low dose computed tomography scan was performed through the chest at 1 mm thick sections a nd reconstructed images in multiple planes at 1 mm and [address] DIAGNOSTIC QUALITY: Satisfactory FINDINGS: There are table mild paraseptal and centrilobular emphysematous changes. There are a few scattered sub-5 mm nodules which are stable. No new or suspicious lung mass or nodule seen. There is no abnormal airspace/consolidative density. There is no pleural effusion, pleural thickening or pneumothorax. The great vessels the chest are normal there's no mediastinal, hilar or axillary adenopathy. No focal osseous lesions are seen. There is scanning through the upper abdomen reveals no gross abnormality. IMPRESSION: 1. Lung metastases category 2 benign findings as described above. Continue routine screening interval s. 3. Mild stable emphysematous changes. 4. No acute cardiopulmonary disease.
== END | disposition home or self-care (01) ==
LOC: RADCTMAIN 06:47
PROVIDERS: ATTEND Internal Medicine
DX: Z12.2 Encounter for screening for malignant neoplasm of respiratory organs (principal); C78.00 Secondary malignant neoplasm of unspecified lung; J43.9 Emphysema, unspecified; F17.210 Nicotine dependence, cigarettes, uncomplicated
CPT/HCPCS: 71271

== ENCOUNTER → 2024-01-19 | Outpatient (CLI) | payer MEDICARE, BC ==
--- NOTE | 2024-01-19 15:08 | CT ---
EXAMINATION TYPE: CT right knee - [facility] Protocol DATE OF EXAM: 01/19/2024 COMPARISON: HISTORY: pre-op right total knee CT DLP: 628 mGycm Automated exposure control for dose reduction was used. Contrast: None Technique: [facility] presurgical planning of the knee. Images were obtained in the axial plane at 2 mm thi ck sections through the hip and ankle and 1 mm thick sections through the knee. Reconstructed images in the coronal and sagittal plane are reviewed. FINDINGS: Hip: Right femoral head articulates with the acetabulum. There is joint space narrowing compatible wi th osteoarthritic degenerative change. No acute fractures evident. Knee: No acute fractures evident. A medial tibial plateau fluid collection is present. No suprapatell ar joint effusion is evident. There is loss of the medial compartment joint space. Some vacuum joint space phenomenon is present. Sclerosis and subchondral cyst formation is evident within the medial co mpartment. Mild narrowing of the lateral compartment joint space is present. Medial tibial plateau sp urring is present. Some narrowing of the patellofemoral joint space is present. Ankle: No acute fractures evident. Joint spaces are preserved. IMPRESSION: 1. ADVANCED DEGENERATIVE JOINT CHANGES WITHIN THE MEDIAL COMPARTMENT RIGHT KNEE. SMALL JOINT EFFUSION APPEARS TO BE MEDIAL TO THE MEDIAL COMPARTMENT. 2. MILD TO MODERATE DEGENERATIVE CHANGES LATERAL COMPARTMENT AND MILDER DEGENERATIVE CHANGES PATELLOF EMORAL JOINT SPACE. [facility], Workstation: [facility], 01/19/2024 3:06 PM
== END | disposition home or self-care (01) ==
LOC: RADCTMAIN 13:46
PROVIDERS: ATTEND Orthopaedic Surgery
DX: M17.11 Unilateral primary osteoarthritis, right knee

== ENCOUNTER → 2024-02-29 | Outpatient (CLI) | payer MEDICARE, BC ==
[2024-02-29 10:28] LABS: Partial Thromboplastin Time 26.9 sec (22.0-30.0)
[2024-02-29 15:06] LABS: HGB 12.3 g/dL (13.0-17.0); MCH 28.9 pg (27.0-32.0); MCHC 32.4 g/dL (32.0-37.0); MCV 89.2 FL (80.0-97.0); Mean Platelet Volume 9.8 FL (9.5-12.2); NRBC Per 100 WBC 0 X 10*3/uL (0.00-0.01); Platelet Count 186 X 10*3/uL (140-440); RBC 4.26 X 10*6/uL (4.40-5.60); RDW 13.2 % (11.5-14.5); WBC 5.89 X 10*3/uL (4.50-10.00)
[2024-02-29 15:19] LABS: ALT 17 U/L (10-49); AST 22 U/L (14-35); Albumin 4.1 g/dL (3.8-4.9); Albumin/Globulin Ratio 1.52 Ratio (1.60-3.17); Alkaline Phosphatase 147 U/L (41-126); BUN/Creat Ratio 15.36 Ratio (12.00-20.00); Blood Urea Nitrogen 16.9 mg/dL (9.0-27.0); Calcium 9.1 mg/dL (8.7-10.3); Carbon Dioxide 25.1 mmol/L (21.6-31.8); Chloride 103 mmol/L (96-109); Globulin 2.7 g/dL (1.6-3.3); Glucose 110 mg/dL (70-110); Potassium 4.9 mmol/L (3.5-5.5); Sodium 138 mmol/L (135-145); Total Bilirubin 0.8 mg/dL (0.3-1.2); Total Protein 6.8 g/dL (6.2-8.2)
[2024-02-29 15:45] LABS: INR 0.9 (<1.2); Prothrombin Time 10.2 sec (10.0-12.5)
== END | disposition home or self-care (01) ==
LOC: LABPAT 09:22
PROVIDERS: ATTEND Orthopaedic Surgery
DX: Z01.812 Encounter for preprocedural laboratory examination (principal); M17.11 Unilateral primary osteoarthritis, right knee
CPT/HCPCS: 80053; 83036; 85027; 85610; 85730; 86850; 86900; 86901; 87070

== ENCOUNTER 2024-03-11 06:00 | Day surgery (SDC) | payer MEDICARE, BC ==
[~2024-03-11 06:00] MED LIST changes: +LIDOCAINE 1% (10MG/ML) FOR IV START INTRADERMA PRN; +MIDAZOLAM 2 MG/2 ML VIAL IV PRN; +ONDANSETRON 4 MG/2 ML VIAL IVP PRN; -REGADENOSON 0.4 MG/5 ML SYRINGE IV PRN; +TRANEXAMIC 1,000 MG/100ML-NACL 1,000 MG in SALINE 1 100ML.BAG IV PRN; +TRANEXAMIC 1,000 MG/100ML-NACL 1,000 MG in SALINE 1 100ML.BAG IVPB PRN
[2024-03-11] MEDS: DEXAMETHASONE SOD PHOSPHATE 10 MG/ML 1 ML VIAL IV PRN (06:36)
[2024-03-11] MEDS: KETOROLAC 15 MG/ML 1 ML VIAL IVP PRN (06:37)
[2024-03-11] MEDS: FAMOTIDINE 20 MG/2 ML VIAL IVP PRN (06:37)
[2024-03-11] MEDS: oxyCODONE ER 10 MG TAB.ER.12H PO PRN (06:37)
[2024-03-11] MEDS: ONDANSETRON 4 MG/2 ML VIAL IVP ONE (06:37)
[2024-03-11] MEDS: ACETAMINOPHEN TAB 500 MG TAB PO PRN (06:37)
[2024-03-11] MEDS: DOCUSATE 100 MG CAP PO PRN (06:38)
[2024-03-11] MEDS: MIDAZOLAM 2 MG/2 ML VIAL IVP ONE (07:04)
[2024-03-11] MEDS: IV FLUID CONTINUATION 1,000 ML IV ONE (07:22)
[2024-03-11] MEDS ORDERED: GLYCOPYRROLATE 0.2 MG/ML 2 ML VIAL ONE (07:39)
[2024-03-11] MEDS ORDERED: ROCURONIUM 10 MG/ML (5 ML VIAL) IV ONE (07:39)
[2024-03-11] MEDS ORDERED: fentaNYL (PF) 50 MCG/ML 2 ML AMP ONE (07:39)
[2024-03-11] MEDS ORDERED: PHENYLEPHRINE-0.9% NACL SYG 1,000 MCG/10 ML SYRINGE ONE (07:39)
[2024-03-11] MEDS ORDERED: HYDROmorphone (PF) 1 MG/ML ONE (07:39)
[2024-03-11] MEDS ORDERED: LIDOCAINE 1% INJ 10MG/ML (20 ML MDV) ONE (07:39)
[2024-03-11] MEDS ORDERED: SUCCINYLCHOLINE CHLORIDE 200 MG/10 ML VIAL IV ONE (07:39)
[2024-03-11] MEDS ORDERED: PROPOFOL 10 MG/ML 20 ML VIAL IV ONE (07:39)
[2024-03-11] MEDS ORDERED: ePHEDrine 50 MG/ML 1 ML VIAL ONE (07:39)
[2024-03-11] MEDS ORDERED: KETAMINE HCL IN 0.9 % NACL 50 MG/5 ML SYRINGE ONE (07:39)
[2024-03-11] MEDS ORDERED: DEXAMETHASONE SOD PHOSPHATE 4 MG/ML 1 ML VIAL ONE (07:39)
[2024-03-11] MEDS ORDERED: ROPIVACAINE 5 MG/ML 30 ML VIAL ONE (07:39)
[2024-03-11] MEDS ORDERED: TRANEXAMIC 1,000 MG/100ML-NACL PREMIX BAG ONE (07:39)
[2024-03-11] MEDS ORDERED: NEOSTIGMINE 1 MG/ML 10 ML VIAL ONE (07:39)
[2024-03-11] MEDS: ROPIVACAINE/EPI/CLONIDINE/KET 50 ML SYRINGE MISCELLANE PRN (08:32)
[2024-03-11] MEDS: LACTATED RINGERS 1,000 ML IV ONE (09:11)
[2024-03-11] MEDS ORDERED: HYDROmorphone 1 MG/ML 1 ML SYRINGE IVP PRN (09:34)
[2024-03-11] MEDS ORDERED: NALOXONE 0.4 MG/ML 1 ML VIAL IV PRN (09:34)
[2024-03-11] MEDS ORDERED: HYDROmorphone 0.5 MG/0.5 ML SYRINGE IVP PRN (09:34)
[2024-03-11] MEDS ORDERED: hydrOXYzine pamoate 25 MG CAP PO PRN (09:34)
[2024-03-11] MEDS ORDERED: diazePAM 5 MG TAB PO PRN ×2 (09:34)
[2024-03-11] MEDS ORDERED: MAGNESIUM HYDROXIDE 2,400 MG/30 ML CUP PO PRN (09:34)
[2024-03-11] MEDS ORDERED: bisacodyL 10 MG SUPP RECTAL PRN (09:34)
[2024-03-11] MEDS ORDERED: ONDANSETRON 4 MG/2 ML VIAL IVP PRN (09:34)
--- NOTE | 2024-03-11 09:34 | P.OP ---
Date of Procedure: 03/11/24 Preoperative Diagnosis: 1. Severe right knee osteoarthritis 2. Former cigarette smoker (quit 02/13/2024) 3. Chronic pain - has pain pump Postoperative Diagnosis: Same Procedure(s) Performed: 1. Right total knee arthroplasty 2. Computer assisted musculoskeletal navigation using CT/MRI images Implants: 1. [place] [employer] CR Femur Size #7 2. [employer] [place] Tibial Base Size #6 3. [place] [employer] CS poly Size #6, 9-mm 4. [place] [employer] all poly patella, Size #35 Anesthesia: CHRISTINE, regional Surgeon: Francisco Javier Gunter Hat Braider #1: Ray Huffman Estimated Blood Loss (ml): 100 IV fluids (ml): 800 Pathology: none sent Condition: stable Disposition: PACU Indications for Procedure: I met with the patient preoperatively in the office setting and discussed treatment of their symptomatic knee arthritis. They failed a long course of nonsurgical treatment and elected to proceed with an elective total knee replacement. I discussed the potential risks and complications at length and gave them ample time to ask questions. Risks discussed included: risks from anesthesia, superficial site surgical infection, acute and/or chronic periprosthetic joint infection, delayed wound healing, drainage, wound necrosis, instability, stiffness, stiffness requiring manipulation and/or revision surgery, damage to local blood vessels or nerves, aseptic loosening of the implants, extensor mechanism issues including disruption, patellar maltracking, avascular necrosis etc., continued or worsened knee pain, generalized dissatisfaction with surgical outcome, need for revision surgery, an inability to regain preinjury level of function, DVT, PE, other medical complications, and possibly loss of life or limb. The patient voiced their understanding that while these are the most common complications other less common complications are possible. They provided both their verbal and written consent to go forward with surgery. the patient previously smoked but was able to quit on 02/13/2024. We discussed the ramifications if he resumes smoking in the perioperative period including increased risk of infection and delayed wound healing. The patient acknowledged this and has no plans to resume smoking. The patient also has a history of chronic pain including an intrathecal pain pump. He was taking hydrocodone prior to surgery. He understands he may have increased pain following surgery. Description of Procedure: The patient was identified in preoperative holding and the correct operative extremity was verified and marked with a marker. I reviewed the consent form with the patient at length. All of their questions were answered. The patient was given a block by anesthesia. They were then brought back to the operating room. They were transferred onto the operating room table where a general anesthetic, preoperative antibiotics, and tranexamic acid were administered by anesthesia. A tourniquet was applied to the proximal aspect of the operative extremity. The contralateral extremity was padded under the heel and secured to the operating room table with a nonsterile blue towel and tape. The ipsilateral arm was carefully draped across the patient's chest and secured with a pillow and foam. A post was applied over the lateral aspect of the ipsilateral thigh and a bolster was placed under the ipsilateral foot. I verified that the operative extremity was stable and the knee was flexed to 90. The operative extremity was then placed in a leg mari, nonsterile drapes were applied, and the extremity was prepped and draped sterilely in the standard sterile fashion. Prior to starting surgery timeout was performed identifying the correct patient, operative extremity, and procedure. The leg was then elevated, exsanguinated with an Esmarch bandage, and the tourniquet was inflated. An anterior midline incision was made sharply with a scalpel. Once I had dissected deep to the superficial fascial layer medial and lateral flaps were elevated. A medial parapatellar arthrotomy was created. Upon opening the knee joint there were diffuse arthritic changes in all 3 compartments. The anterior horn of the medial meniscus were sharply released and a medial release was performed around the posterior medial corner of the knee to facilitate retractor placement. The fat pad was excised with electrocautery. The patella was found to be severely arthritic and a provisional cut was made with a sagittal saw to facilitate mobilization of the extensor mechanism during the procedure. Remnants of the ACL and PCL were then excised from the notch. 4 mm pins were then placed within the incision in the medial distal femur and proximal tibia. Arrays were applied to the pins and I verified they were completely tightened. The knee was then registered with the [employer] robot and manipulations in implant position were made to balance the knee and opitmize implant position. Using the [employer] robotic saw all cuts were made in accordance with our plan. After all bony fragments had been removed the cuts were verified with the planar probe. The tibia was then subluxed forward and sized. The knee was brought into flexion and a lamina web development intern was placed to allow removal of the meniscal remnants both medially and laterally as well as posterior osteophytes. Local anesthetic was then infiltrated around the joint capsule. Trial implants were then placed within the knee. Range of motion and collateral ligament tension was then evaluated. Adjustments in implant size and position were then made accordingly. Once the knee was felt to be appropriately balanced the Jimmy pins were removed. The patella was then recut, sized, and punched. A trial patellar button was then placed. With the trial components in place, the patella tracked midline. The femur was then drilled and the trial component removed. The trial tibial component was then appropriately rotated, pinned, and prepared for the keel. All trial components were then removed from the knee. The knee was thoroughly irrigated with pulsatile lavage. Cement was prepared via vacuum mixing in a bowl on the back table. I then hand pressurized cement into the femur and tibia and placed the implants beginning with the tibial base tray and poly liner, femoral component, and finally the patellar button. All extruded cement was removed including from the pin sites. Once the cement had hardened the knee was evaluated one final time with the final polyethylene liner in place. The knee had full extension and flexion and felt stable to varus and valgus stress t hroughout the arc of motion. The tourniquet was released and with the tourniquet down the patella tracked midline. All bleeders were controlled with electrocautery. The knee was then soaked for 3 minutes with a dilute Betadine soak. The knee was thoroughly irrigated using 3 L of sterile saline and pulsatile lavage. The extensor mechanism was then reapproximated using pop off Vicryl sutures followed by a running barbed suture. The knee was then closed in layers with a 0 strata fix for the deep fascial layer, 2-0 strata fix for the superficial subcutaneous layer and Monocryl and Steri-Strips for the skin. A sterile dressing was applied. I verified that all instrument, sponge, and sharp counts were correct. The patient was then transferred off the operating room table, extubated, and brought to recovery having tolerated the procedure well. Ray Huffman PA-C was required as a skilled licensed occupational therapy assistant for patient positioning, draping, exposure, retraction, closure of wound and application of dressing PLAN: The patient can weight-bear as tolerated on the operative extremity. DVT prophylaxis with aspirin 81 mg twice a day based on preoperative risk stratification. Internal medicine for perioperative medical management. 2 doses of post-operative antibiotics. Physical therapy for gait training. Follow-up in the office in 2 weeks for wound check and x-rays of the knee including an AP and lateral.
[2024-03-11] MEDS: HYDROmorphone 0.5 MG/0.5 ML SYRINGE IVP PRN (10:10)
[2024-03-11] MEDS: fentaNYL (PF) 50 MCG/ML 2 ML AMP IVP PRN (10:40)
[2024-03-11] MEDS: DEXAMETHASONE SOD PHOSPHATE 4 MG/ML 1 ML VIAL IV ONE (10:43)
[2024-03-11] MEDS: LACTATED RINGERS 1,000 ML IV SCH (10:43)
[2024-03-11] MEDS: SODIUM CHLORIDE 0.9% 1,000 ML IV SCH (10:44)
--- NOTE | 2024-03-11 11:21 | XR ---
EXAMINATION TYPE: XR knee limited 2 views RT DATE OF EXAM: 03/11/2024 10:07 AM COMPARISON: None CLINICAL INDICATION: Male, 73 years old with history of Evaluation for Postop abnormality and alignme nt, , FINDINGS: There is placement of right total knee arthroplasty. Both distal femoral and proximal tibial componen ts of the prosthesis are well seated without periprosthetic fracture. Alignment grossly anatomic. Ant erior soft tissue swelling with soft tissue air as well as intra-articular air related to recent oper ation. IMPRESSION: Uncomplicated postoperative appearance right total knee arthroplasty. [facility], , 03/11/2024 11:18 AM
[2024-03-11] MEDS: oxyCODONE-APAP 5-325MG 1 EACH TAB PO PRN (17:57)
[2024-03-11] MEDS: SENNOSIDES-DOCUSATE SODIUM 1 EACH TAB PO SCH (21:13)
[2024-03-11] MEDS: ASPIRIN 81 MG PO SCH (21:13)
[2024-03-11] MEDS: MONTELUKAST 10 MG TAB PO SCH (21:13)
[2024-03-11] MEDS ORDERED: TEMAZEPAM 15 MG CAP PO PRN (22:00)
--- NOTE | 2024-03-11 23:33 | P.CONS ---
History of Present Illness - Reason for Consult Consult date: 03/11/24 Medical management - Chief Complaint Right total knee arthroplasty - History of Present Illness Patient is a 73-year-old male with a past medical history of hyperlipidemia, osteoarthritis, L4-L5 chronic back pain pain pump, depression, prior history of smoking. Patient was admitted to the hospital for elective right total knee arthroplasty. Patient tolerated the procedure well. Currently resting in the bed. Awake alert and oriented x 3. Blood pressure 117/68 pulse 53 respiration 17 and pulse ox 97% on room air. Denied any dizziness or lightheadedness. No nausea vomiting abdominal pain or diarrhea. Right knee pain is well-controlled. Review of Systems Constitutional: Patient denies any fever or chills . No generalized weakness or weight loss. Abdomen: Patient denied nausea vomiting and diarrhea and abdominal pain. Cardiovascular: Patient denies any chest pain or short of breath no palpitations. Respiratory: patient denied any cough or sputum production. No shortness of breath Neurologic: Patient denied any numbness or tingling. no headache. Musculoskeletal: Patient denies any complaints of joint swelling or deformity. Skin: Negative Psychiatric: Negative Endocrine: No heat or cold intolerance. No recent weight gain. Genitourinary: No dysuria or hematuria. All other 14 point ROS negative except the above Past Medical History Past Medical History: Hyperlipidemia, Musculoskeletal Disorder, Osteoarthritis (OA), Skin Disorder Additional Past Medical History / Comment(s): pain pump in back, mostly healed burn right ankle-Dr. Sheridan aware, L4-5 back problem History of Any Multi-Drug Resistant Organisms: None Reported Past Surgical History: Orthopedic Surgery Additional Past Surgical History / Comment(s): prerna carpal tunnel surg, pain pump implant, rhinoplasty surgery, colonoscopies Past Anesthesia/Blood Transfusion Reactions: No Reported Reaction Past Psychological History: Depression Smoking Status: Former smoker Past Alcohol Use History: None Reported Additional Past Alcohol Use History / Comment(s): quit smoking 02/13/24, smoked 35 yrs., 1ppd or more Past Drug Use History: None Reported - Past Family History Mother Family Medical History: No Reported History Medications and Allergies Home Medications Medication Instructions Recorded Confirmed Type Lisinopril-Hctz 10-12.5 mg 1 tab PO DAILY 10/22/16 03/11/24 History [Zestoretic 10-12.5] Meloxicam 15 mg PO DAILY 10/22/16 03/07/24 History Atorvastatin [Lipitor] 40 mg PO DAILY 03/07/24 03/11/24 History HYDROmorphone [Dilaudid] 0 pump INTRATHECA CONTINUOUS 03/07/24 03/07/24 History Montelukast [Singulair] 10 mg PO HS 03/07/24 03/11/24 History Sertraline HCl [Zoloft] 50 mg PO DAILY 03/07/24 03/11/24 History Aspirin 81 mg PO BID #60 tab 03/11/24 Rx Diclofenac Sodium [Voltaren] 75 mg PO BID #60 tab 03/11/24 Rx Docusate [Colace] 100 mg PO BID #60 capsule 03/11/24 Rx Doxycycline Monohydrate 100 mg PO BID #30 cap 03/11/24 Rx Omeprazole [PriLOSEC] 40 mg PO DAILY #30 cap 03/11/24 Rx Allergies Allergy/AdvReac Type Severity Reaction Status Date / Time No Known Allergies Allergy Verified 03/07/24 11:01 Physical Exam Vitals: Vital Signs Temp Pulse Resp BP Pulse Ox 03/11/24 13:06 100 03/11/24 11:05 71 18 144/77 98 03/11/24 10:50 76 18 126/67 96 03/11/24 10:35 71 16 134/61 100 03/11/24 10:20 75 16 140/70 96 03/11/24 10:05 81 18 117/59 99 03/11/24 09:50 98.1 F 79 14 152/61 99 03/11/24 07:15 70 20 131/62 92 L 03/11/24 06:44 97.6 F 66 20 160/72 94 L Intake and Output 03/10/24 03/11/24 03/11/24 22:59 06:59 14:59 Intake Total 1450 Output Total 100 Balance 1350 Intake: IV 1450 Output: Estimated Blood Loss 100 Other: Weight 97.8 kg 97.8 kg PHYSICAL EXAMINATION: Patient is lying in the bed comfortably, no acute distress, awake alert and oriented.. HEENT: Normocephalic. Neck is supple. Pupils reactive. Nostrils clear. Oral cavity is moist. Neck reveals no JVD, carotid bruits, or thyromegaly. CHEST EXAMINATION: Trachea is central. Symmetrical expansion. Bibasilar diminished sounds otherwise lung nesbitt clear to auscultation and percussion. CARDIAC: Normal S1, S2 with no gallops. No murmurs ABDOMEN: Soft. Bowel sounds normal. No organomegaly. No abdominal bruits. Extremities: reveal no edema. No clubbing or cyanosis Neurologically awake, alert, oriented x3 with well-coordinated movements. No focal deficits noted Skin: No rash or skin lesions. Psychiatric: Coperative. Nonsuicidal Musculoskeletal: No joint swelling or deformity. Normal range of motion. Assessment and Plan Assessment: Right total knee arthroplasty postoperative day 0 Hypertension Hyperlipidemia Osteoarthritis Chronic back pain and pain pump placement Depression GI and DVT prophylaxis as per primary team Plan: Patient will be continued on pain management, bowel regimen and encourage incentive spirometry. Started back on blood pressure medications lisinopril/hydrochlorothiazide and titrate doses as needed. Follow-up CBC and BMP tomorrow. Continue to follow closely and further recommendations based on the clinical course. PT OT was consulted. Thank you kindly for your consult.
[2024-03-12 07:10] VITALS: BP 109/66; PULSE 68; RESP 16; TEMP 98
[2024-03-12] MEDS: ATORVASTATIN 40 MG TAB PO SCH (08:05)
[2024-03-12] MEDS: LISINOPRIL-HCTZ 10-12.5 MG 1 EACH TAB PO SCH (08:05)
[2024-03-12] MEDS: SERTRALINE 50 MG TAB PO SCH (08:05)
[2024-03-12 09:33] LABS: Basophils # (A) 0.01 X 10*3/uL (0.00-0.10); Basophils % (A) 0.1 %; Eosinophils # (A) 0 X 10*3/uL (0.04-0.35); Eosinophils % (A) 0 %; HCT 31.8 % (39.6-50.0); HGB 10.3 g/dL (13.0-17.0); Lymphocytes # (A) 1.01 X 10*3/uL (0.90-5.00); Lymphocytes % (A) 9.2 %; MCH 29.5 pg (27.0-32.0); MCHC 32.4 g/dL (32.0-37.0); MCV 91.1 FL (80.0-97.0); Mean Platelet Volume 10.2 FL (9.5-12.2); Monocytes % (A) 9.2 %; NRBC Per 100 WBC 0 X 10*3/uL (0.00-0.01); Neutrophils # (A) 8.85 X 10*3/uL (1.80-7.70); Platelet Count 179 X 10*3/uL (140-440); RBC 3.49 X 10*6/uL (4.40-5.60); WBC 10.92 X 10*3/uL (4.50-10.00)
--- NOTE | 2024-03-12 09:33 | P.DS ---
Providers Date of admission: 03/11/2024 Attending physician: Francisco Javier Gunter Consults: 03/11/24 09:34 Consult Physician Routine Consulting Provider: Quintin Luque Consult Reason/Comments: post op medical management Do you want consulting provider notified?: Yes Primary care physician: Vasiliy Larry [facility] Course: The patient is a very pleasant 73-year-old male who underwent an uncomplicated right total knee replacement yesterday. Following surgery he was transferred to the orthopedic floor. He'll receive 2 doses of postoperative antibiotics. He was transitioned from IV to oral pain medication. I saw the patient on postoperative day #1 and he was doing well. He was comfortable. His dressing was intact. His thigh and calf are soft. Femoral nerve function was intact. He is able to actively plantar flex and dorsiflex his ankle and his toes. He worked with physical therapy and did well. He was ultimately cleared for discharge home. Patient Condition at Discharge: Good Plan - Discharge Summary Discharge Rx Participant: No New Discharge Prescriptions: New Aspirin 81 mg PO BID #60 tab oxyCODONE HCL/ACETAMINOPHEN [Percocet 5-325 mg] 1 - 2 tab PO Q6HR PRN 3 Days #32 tab PRN Reason: Pain Docusate [Colace] 100 mg PO BID #60 capsule Diclofenac Sodium [Voltaren] 75 mg PO BID #60 tab Omeprazole [PriLOSEC] 40 mg PO DAILY #30 cap Doxycycline Monohydrate 100 mg PO BID #30 cap No Action Lisinopril-Hctz 10-12.5 mg [Zestoretic 10-12.5] 1 tab PO DAILY Meloxicam 15 mg PO DAILY Montelukast [Singulair] 10 mg PO HS Atorvastatin [Lipitor] 40 mg PO DAILY Sertraline HCl [Zoloft] 50 mg PO DAILY HYDROmorphone [Dilaudid] 0 pump INTRATHECA CONTINUOUS Discharge Medication List Lisinopril-Hctz 10-12.5 mg [Zestoretic 10-12.5] 1 tab PO DAILY 10/22/16 [History] Meloxicam 15 mg PO DAILY 10/22/16 [History] Atorvastatin [Lipitor] 40 mg PO DAILY 03/07/24 [History] HYDROmorphone [Dilaudid] 0 pump INTRATHECA CONTINUOUS 03/07/24 [History] Montelukast [Singulair] 10 mg PO HS 03/07/24 [History] Sertraline HCl [Zoloft] 50 mg PO DAILY 03/07/24 [History] Aspirin 81 mg PO BID #60 tab 03/11/24 [Rx] Diclofenac Sodium [Voltaren] 75 mg PO BID #60 tab 03/11/24 [Rx] Docusate [Colace] 100 mg PO BID #60 capsule 03/11/24 [Rx] Doxycycline Monohydrate 100 mg PO BID #30 cap 03/11/24 [Rx] Omeprazole [PriLOSEC] 40 mg PO DAILY #30 cap 03/11/24 [Rx] oxyCODONE HCL/ACETAMINOPHEN [Percocet 5-325 mg] 1 - 2 tab PO Q6HR PRN 3 Days #32 tab 03/12/24 [Rx] Follow up Appointment(s)/Referral(s): Francisco Javier Gunter MD [Medical Doctor] - 2 Weeks Activity/Diet/Wound Care/Special Instructions: 1. Weight-bear as tolerated on your operative extremity unless instructed otherwise. Use a walker or other assistive device to ambulate. 2. Leave surgical dressing in place. If your dressing becomes saturated with blood, there is drainage, or the dressing becomes loose please contact the office. 3. It is okay to shower with your surgical dressing, but do not submerge in water (no hot tubs, bath's, swimming etc.) 4. Make sure to take her blood clot prevention medication as prescribed (aspirin, Eliquis, Xarelto, and Plavix are commonly prescribed medications for blood clot prevention) 5. While taking [place] or Percocet for pain make sure you're taking a stool softener (Colace) and drink lots of water. 6. Keep all follow-up appointments as scheduled. You will usually be seen in 1-2 weeks following surgery. 7. Please contact the office with any questions or concerns [phone] Discharge Disposition: HOME WITH HOME HEALTH SERVICES
[2024-03-12 09:37] LABS: Blood Urea Nitrogen 22.7 mg/dL (9.0-27.0); Calcium 8.2 mg/dL (8.7-10.3); Carbon Dioxide 23.4 mmol/L (21.6-31.8); Chloride 103 mmol/L (96-109); Glucose 134 mg/dL (70-110); Potassium 4.5 mmol/L (3.5-5.5); Sodium 135 mmol/L (135-145)
--- NOTE | 2024-03-12 11:43 | P.PN ---
Subjective Progress Note Date: 03/12/24 Patient is a 73-year-old male with a past medical history of hyperlipidemia, osteoarthritis, L4-L5 chronic back pain pain pump, depression, prior history of smoking. Patient was admitted to the hospital for elective right total knee arthroplasty. Patient tolerated the procedure well. Currently resting in the bed. Awake alert and oriented x 3. Blood pressure 117/68 pulse 53 respiration 17 and pulse ox 97% on room air. Denied any dizziness or lightheadedness. No nausea vomiting abdominal pain or diarrhea. Right knee pain is well-controlled. 03/12. Patient seen and examined. Knee pain has improved. Patient is medically stable for discharge REVIEW OF SYSTEMS: CONSTITUTIONAL: No fever, no malaise,. CARDIOVASCULAR: No chest pain, no palpitations, no syncope. PULMONARY: No shortness of breath, no cough, GASTROINTESTINAL: No diarrhea, no nausea, no vomiting, no abdominal pain. NEUROLOGICAL: No headaches, no weakness, PHYSICAL EXAMINATION: GENERAL: The patient is alert and oriented x3, not in any acute distress. Well developed, well nourished. HEENT: Pupils are round and equally reacting to light. EOMI. No scleral icterus. No conjunctival pallor. Normocephalic, atraumatic. No pharyngeal erythema. No thyromegaly. CARDIOVASCULAR: S1 and S2 present. No murmurs, rubs, or gallops. PULMONARY: Chest is clear to auscultation, no wheezing or crackles. ABDOMEN: Soft, nontender, nondistended, normoactive bowel sounds. No palpable organomegaly. MUSCULOSKELETAL: Right knee surgical incision seen EXTREMITIES: No cyanosis, clubbing, or pedal edema. NEUROLOGICAL: Gross neurological examination did not reveal any focal deficits. SKIN: No rashes. Assessment and plan Right total knee arthroplasty postoperative day 0 Hypertension Hyperlipidemia Osteoarthritis Chronic back pain and pain pump placement Depression Monitor vital signs Monitor CBC Monitor CMP Continue pain management per orthopedics Continue DVT prophylaxis per orthopedics Continue home meds Labs and medication were reviewed.. Continue same treatment. Continue with symptomatic treatment. Resume home medication. Monitor labs and vitals. DVT and GI prophylaxis. Further recommendations as per clinical course of the patient Dictation was produced using [employer] dictation software. please excuse any grammatical, word or spelling errors. Objective - Vital Signs Vital signs: Vital Signs Temp 98.0 F 03/12/24 07:10 Pulse 68 03/12/24 08:05 Resp 16 03/12/24 08:05 BP 109/66 03/12/24 07:10 Pulse Ox 93 L 03/12/24 07:10 FiO2 Intake & Output 03/11/24 03/12/24 03/12/24 18:59 06:59 18:59 Intake Total 1450 Output Total 100 142 Balance 1350 -142 Weight 97.8 kg Intake: IV 1450 Output: Post Void Residual 142 Estimated Blood Loss 100 Other: Voiding Method Toilet # Voids 1 1 - Labs CBC & Chem 7: 03/12/24 03:06 03/12/24 03:06 Labs: Abnormal Lab Results - Last 24 Hours (Table) 03/12/24 03/12/24 Range/Units 03:06 03:06 WBC 10.92 H (4.50-10.00) X 10*3/uL RBC 3.49 L (4.40-5.60) X 10*6/uL Hgb 10.3 L (13.0-17.0) g/dL Hct 31.8 L (39.6-50.0) % Immature Gran # 0.05 H (0.00-0.04) X 10*3/uL Neutrophils # 8.85 H (1.80-7.70) X 10*3/uL Eosinophils # 0 L (0.04-0.35) X 10*3/uL BUN/Creatinine Ratio 22.70 H (12.00-20.00) Ratio Glucose 134 H (70-110) mg/dL Calcium 8.2 L (8.7-10.3) mg/dL
== END 2024-03-12 12:54 | disposition home health service (06) ==
LOC: OR 06:00 → 4SSUR 09:50 → OR 03-12 12:54
PROVIDERS: ATTEND Orthopaedic Surgery
DX: M17.11 Unilateral primary osteoarthritis, right knee (principal); I10 Essential (primary) hypertension; G89.29 Other chronic pain; F32.A Depression, unspecified; E78.5 Hyperlipidemia, unspecified; H91.90 Unspecified hearing loss, unspecified ear; Z79.1 Long term (current) use of non-steroidal anti-inflammatories (NSAID); Z79.82 Long term (current) use of aspirin; Z79.899 Other long term (current) drug therapy; Z87.891 Personal history of nicotine dependence
CPT/HCPCS: 0055T; 27447; 64447; 64999; 80048; 85025; 94760

== ENCOUNTER 2024-06-29 11:06 | Day surgery (SDC) | payer MEDICARE, BC ==
[~2024-06-29 11:06] MED LIST changes: +ALPRAZolam 0.25 MG TAB PO PRN; +ALPRAZolam 0.5 MG TAB PO PRN; -LIDOCAINE 1% (10MG/ML) FOR IV START INTRADERMA PRN; -MIDAZOLAM 2 MG/2 ML VIAL IV PRN; +NITROGLYCERIN SL TABS 0.4 MG TAB SUBLINGUAL PRN; -ONDANSETRON 4 MG/2 ML VIAL IVP PRN; -TRANEXAMIC 1,000 MG/100ML-NACL 1,000 MG in SALINE 1 100ML.BAG IV PRN; -TRANEXAMIC 1,000 MG/100ML-NACL 1,000 MG in SALINE 1 100ML.BAG IVPB PRN
[2024-06-29 11:39] VITALS: TEMP 98.4
[2024-06-29] MEDS: ASPIRIN 325 MG TAB PO STA (11:44)
[2024-06-29] MEDS: SODIUM CHLORIDE 0.9% 1,000 ML in EMPTY BAG 1 BAG IV SCH (11:44)
[2024-06-29] MEDS: ATORVASTATIN 80 MG TAB PO STA (11:44)
[2024-06-29] MEDS: SODIUM CHLORIDE 0.9% 1,000 ML IV ONE (11:45)
[2024-06-29] MEDS: MIDAZOLAM 2 MG/2 ML VIAL IVP ONE (12:15)
[2024-06-29] MEDS: fentaNYL (PF) 50 MCG/ML 2 ML AMP IVP ONE (12:15)
[2024-06-29] MEDS: HEPARIN SODIUM,PORCINE 10,000 UNIT in SODIUM CHLORIDE 0.9% 1,000 ML IRRIGATION PRN (12:18)
[2024-06-29] MEDS: HEPARIN SODIUM,PORCINE (1 ML) 2,500 UNIT in SODIUM CHLORIDE 0.9% 250 ML IRRIGATION PRN (12:18)
[2024-06-29] MEDS: LIDOCAINE 1% INJ 10MG/ML (20 ML MDV) SQ ONE (12:19)
[2024-06-29] MEDS: VERAPAMIL SYRINGE (5 MG/10 ML) INTRAARTER ONE (12:21)
[2024-06-29] MEDS: HEPARIN SODIUM 1,000 UN/ML (10ML VL) IV ONE (12:23)
[2024-06-29] MEDS: IOPAMIDOL-370 100ML BTL INJ ONE (12:29)
[2024-06-29] MEDS ORDERED: RX INFO: IV CONTRAST WAS GIVEN 1 EACH MISC MISCELLANE PRN (12:31)
--- NOTE | 2024-06-29 12:31 | P.CARDCATH ---
Description of Procedure: PROCEDURES PERFORMED: Left heart catheterization, bilateral coronary angiography, ultrasound guided arterial access INDICATION: Abnormal stress test CONSENT:The risks, benefits and alternative therapies for the above-mentioned procedure and for both sedation/analgesia as well as necessary blood product administration, if indicated, as they pertain to this patient were discussed with the patient. The patient has indicated understanding and acceptance of the risks and procedures discussed. PROCEDURE: After the risks, benefits and alternatives of the above mentioned procedure explained in detail with the patient, informed consent was obtained. Patient was taken to the catheterization lab and prepped and draped in usual fashion. Ultrasound guidance was used to assess for arterial access. 1% lidocaine was used to anesthetize the right radial artery. A 6-Slovenian sheath was placed in the right radial artery using modified Seldinger technique and ultrasound guidance. Left coronary angiography was performed with a 5-[place] JL 3.5 catheter and right coronary angiography was performed with a 5-[place]oven[place] FR5 catheter in various views. A 5-[place] FR5 catheter was inserted into the left ventricle and pressure measurements were obtained. The right radial sheath was removed and a TR band was placed with hemostasis achieved. The patient tolerated the procedure well. Patient was transported back to the post catheterization holding area in stable condition. Conscious Sedation: Patient was monitored under the direct supervision of myself for conscious sedation using Versed and fentanyl for a total duration of 12 minutes HEMODYNAMICS: Aorta: 1:15/55 LV: 120/2, LVEDP 15 SELECTIVE CORONARY ARTERIOGRAPHY: LEFT MAIN: The left main is a large caliber vessel which bifurcates into the LAD and circumflex. There is no significant stenosis. LEFT ANTERIOR DESCENDING CORONARY ARTERY: LAD is a large caliber vessel which wraps around to the apex. There are mild luminal irregularities of the LAD LEFT CIRCUMFLEX CORONARY ARTERY: Left circumflex is a moderate caliber vessel without significant stenosis. RIGHT CORONARY ARTERY: The right coronary artery is a large caliber vessel which gives off a PDA and PLV branch and is the dominant vessel. There is mid RCA 20% stenosis. FINAL IMPRESSION: 1. Relatively normal coronary arteries other than mild luminal irregularities of the LAD and 20% RCA stenosis 2. Normal left sided filling pressures PLAN: 1. Aggressive risk factor modification per most recent ACC/AHA guidelines. 2. Follow-up in the office in 1-2 weeks.
[2024-06-29] MEDS ORDERED: SODIUM CHLORIDE 0.9% 1,000 ML IV SCH (12:45)
[2024-06-29 18:00] VITALS: BP 124/71; PULSE 53; RESP 16
== END 2024-06-29 15:41 | disposition home or self-care (01) ==
LOC: CATHCVL 11:06
PROVIDERS: ATTEND Internal Medicine
DX: I25.10 Atherosclerotic heart disease of native coronary artery without angina pectoris (principal); I10 Essential (primary) hypertension; E78.5 Hyperlipidemia, unspecified; Z87.891 Personal history of nicotine dependence; R94.39 Abnormal result of other cardiovascular function study; G89.29 Other chronic pain
CPT/HCPCS: 93458; J2250; J1644 ×3; J2003; J3010; Q9967

== ENCOUNTER → 2024-07-15 | Outpatient (CLI) | payer MEDICARE, BC ==
--- NOTE | 2024-07-15 15:01 | US ---
EXAMINATION TYPE: US carotid duplex BILAT DATE OF EXAM: 07/15/2024 COMPARISON: US(07/15/2022) CLINICAL INDICATION: Male, 74 years old with history of I73.9 PERIPHERAL VASCULAR DISEASE, UNSPECIFIE D; F/u Additional History: .... TECHNIQUE: Grayscale, color Doppler and spectral Doppler evaluation of the bilateral carotid systems and vertebral arteries. Indirect Doppler criteria was utilized. FINDINGS: EXAM MEASUREMENTS: RIGHT: Peak Systolic Velocity (PSV) cm/sec ----- Right CCA: 100 ----- Right ICA: 114 ----- Right ECA: 121 ICA/CCA ratio: 1.1 RIGHT: End Diastole cm/sec ----- Right CCA: 18.8 ----- Right ICA: 30.5 ----- Right ECA: 14.9 LEFT: Peak Systolic Velocity (PSV) cm/sec ----- Left CCA: 177 ----- Left ICA: 115 ----- Left ECA: 114 ICA/CCA ratio: 0.7 LEFT: End Diastole cm/sec ----- Left CCA: 27.5 ----- Left ICA: 12.5 ----- Left ECA: 12.5 VERTEBRALS (direction of flow): Right Vertebral: Antegrade Left Vertebral: Antegrade Rhythm: Normal [employer] NOTES: Slightly elevated velocities at Left Dist CCA & Bulb No significant stenosis seen, Minimal plaque seen bilaterally within Bulbs Color Doppler imaging shows patency with blood flow throughout the carotid artery. Spectral waveforms are within normal limits. IMPRESSION: Increased peak systolic velocity bilaterally raises concern for underlying uncontrolled hypertension. Correlate clinically. Right: No hemodynamically significant stenosis. Left: No hemodynamically significant stenosis. Criteria for Assigning % of Stenosis / Diameter reduction (Estimation based on the indirect measurements of the internal carotid artery velocities (ICA PSV). 1. Normal (no stenosis)=ICA PSV < 180 cm/s: ratio < 2.0: ICA EDV<40 cm/s. 2. Less than 50% stenosis=ICA PSV < 180 cm/s: ratio < 2.0: ICA EDV<40 cm/s. 3. 50 to 69% stenosis=ICA PSV of 180 to 230 cm/s: ration 2.0 ? 4.0: ICA EDV 40-100 cm/s. PSV 125-180 cm/sec and ICA/CCA PSV Ratio ? 2.0 is also consistent with 50-69% stenosis 4. Greater than 70% stenosis to near occlusion= ICA PSV > 230 cm/s: ratio > 4.0: ICA EDV > 100 cm/s. 5. Near occlusion= ICA PSV velocities may be low or undetectable: variable ratio and ICA EDV. 6. Total occlusion=unable to detect flow. [facility], , 07/15/2024 2:58 PM
--- NOTE | 2024-07-15 15:06 | US ---
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 History of: Smoker: Current Smoker Hypertension: Yes Diabetic: No Hyperlipidemia: Yes TIA/CVA: No Previous Vascular Surgery: No CAD: No [place]: No Vascular Ulcers: No Claudication: No Gangrene: No FINDINGS: Doppler Waveforms: Right: Biphasic Left: Biphasic Brachial Artery systolic pressure: Right: 140 Left: 144 Posterior Tibial artery systolic pressure: Right: 142 Left: 154 Dorsalis Pedis artery systolic pressure: Right: 135 Left: 150 Ankle-Brachial Indices: Right: 1.0 Left: 1.07 (Normal > 0.6; Mild 0.35 - 0.59, Moderate 0.12 - 0.34, Severe <0.12) IMPRESSION: DEBBIE: Right: Normal 0.9 - 1.4, Recommendation: None Left: Normal 0.9 - 1.4, Recommendation: None [facility], , 07/15/2024 3:04 PM
--- NOTE | 2024-07-15 16:39 | CT ---
EXAMINATION TYPE: CT brain wo con DATE OF EXAM: 07/15/2024 3:34 PM COMPARISON: None. CLINICAL INDICATION: Male, 74 years old with history of G31.84 Mild cognitive impairment, Change in m michael, mild forgetfulness. TECHNIQUE: CT of the brain is performed utilizing 3 mm thick sections through the posterior fossa and 3 mm thick sections through the remaining calvarium. Study is performed within 24 hours of arrival to the hospital. Contrast used: mL of , (none if empty) CT DLP: 1107.1 mGycm, Automated exposure control for dose reduction was used. FINDINGS: No abnormal hyperdensity is present to suggest an acute intracranial hemorrhage. No mass lesion is evident. No acute infarcts are evident. Chronic appearing periventricular and deep white matter hypodensity is present, likely on the basis of chronic white matter ischemic changes Ventricles and sulci are mildly prominent for the patient age. Paranasal sinuses and mastoid air cells within the [id number] are clear. IMPRESSION: 1. No acute intracranial process. Follow up MRI can be performed as clinically indicated. 2. Chronic appearing periventricular and deep white matter ischemic-type changes with age related atr ophy. [facility], , 07/15/2024 4:37 PM
== END | disposition home or self-care (01) ==
LOC: RADUSWWP 13:21
PROVIDERS: ATTEND Internal Medicine
DX: I73.9 Peripheral vascular disease, unspecified (principal); I65.23 Occlusion and stenosis of bilateral carotid arteries; R90.82 White matter disease, unspecified; I67.82 Cerebral ischemia; Z96.659 Presence of unspecified artificial knee joint
CPT/HCPCS: 70450; 93880; 93922

== ENCOUNTER → 2024-10-19 | Outpatient (CLI) | payer MEDICARE, BC ==
--- NOTE | 2024-10-19 09:18 | CTL ---
EXAMINATION TYPE: CT Low Dose Lung DATE OF EXAM ORDERED: 10/19/2024 COMPARISON: CT Low Dose Lung 07/30/2023, 07/17/2022, 07/15/2021, 07/11/2020 CLINICAL INDICATION: Male, 74 years old with history of Z12.2, Z87.891 PERSONAL HISTORY OF NICOTINE D EPEND; PHH, former smoker, 1 pack a day for 35 years, Lung cancer screening, History of Smoking/tobac co use. TECHNIQUE: Low dose computed tomography scan was performed through the chest at 1 mm thick sections a nd reconstructed images in multiple planes at 1 mm and [address] DLP: 304.[address] CTDI: 3.5 mGy Automated exposure control for dose reduction was used. CT DIAGNOSTIC QUALITY: Satisfactory FINDINGS: Nodules: Few scattered stable sub-5 mm pulmonary nodules. Examples include a posterior left upper lobe subpleu ral 3.8 mm pulmonary nodule (series 6, image 11) and in anterior right midlung subpleural 3.5 mm pulm onary nodule (series 6, image 33). LUNGS: COPD: Severity: Mild Fibrosis: Severity: None Lymph nodes: None Other findings: Stable bilateral lower lobe scarring. RIGHT PLEURAL SPACE: Effusion: None Calcification: None Thickening: None Pneumothorax: None LEFT PLEURAL SPACE: Effusion: None Calcification: None Thickening: None Pneumothorax: None HEART: Heart Size: Normal Coronary Calcification: Small Pericardial Effusion: None OTHER FINDINGS: Upper abdomen: None Bony thorax: Spinal stimulator lead is identified within the spinal canal terminating at the T7 level . Multilevel degenerative disc disease. DISH of the thoracic spine. Supraclavicular region: None Other: None IMPRESSION: 1. Few stable pulmonary nodules measuring less than 5 mm. 2. Mild emphysematous change. CT LUNG RAD AND CT CHEST RECOMMENDATION: Lung-Rad 2 Benign Appearance or Behavior: Continue annual sc reening with LDCT in 12 months. S Modifier (other clinically significant findings): None [facility], , 10/19/2024 9:15 AM
== END | disposition home or self-care (01) ==
LOC: RADCTMAIN 08:19
PROVIDERS: ATTEND Internal Medicine
DX: Z12.2 Encounter for screening for malignant neoplasm of respiratory organs (principal); R91.8 Other nonspecific abnormal finding of lung field; J43.9 Emphysema, unspecified; Z87.891 Personal history of nicotine dependence
CPT/HCPCS: 71271